=== PATIENT | female | born 1980 | race Caucasian/White ===

== ENCOUNTER 2016-06-15 16:02 | Emergency (ER) | payer OTHER ==
[2016-06-15] MEDS ORDERED: Lactated Ringers 1,000 ML IV ONE ×2 (16:18→16:48)
[2016-06-15 16:49] LABS: BASOPHIL % 0.5 % (0.0-0.4); Granulocytes % 65.4 % (36.0-66.0); Lymphocytes % 25.4 % (24.0-44.0); Mean Cell Volume 85.7 fl (78-100); Mean Corpuscular Hemoglobin 28.1 pg (26-32); Monocytes % 6.7 % (0.0-12.0); Platelet Count 246 K/mm3 (150-450); Red Blood Count 4.41 M/mm3 (4.1-5.4); Red Cell Distribution Width 13.3 % (11.5-14.0); White Blood Count 9.2 K/mm3 (4.0-10.5)
[2016-06-15 17:18] VITALS: BP 135/76; PULSE 77
[2016-06-15 17:19] VITALS: O2SAT 100
--- NOTE | 2016-06-15 17:19 | ERPHSYRPT ---
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 She is early in . Had home preg test positive. Today she felt dizziness while working and had some vaginal bleeding. Normal urination. No abd pain. No V/D. No fever. Prior normal preg delivered at 37 weeks. No sonogram or labs this as yet. Has appt to see Dr Meade. Timing/Duration: today Allergies/Adverse Reactions: Penicillins Allergy (Unknown, Verified 06/15/16 16:11) Home Medications: No Home Meds 1 ea UD 06/15/16 [History] Hx Tetanus, Diphtheria Vaccination/Date Given: No Hx Influenza Vaccination/Date Given: Yes (2015) Hx Pneumococcal Vaccination/Date Given: No - Review of Systems Constitutional: No Fever, No Chills Eyes: No Symptoms Ears, Nose, & Throat: No Symptoms Abdominal/Gastrointestinal: No Abdominal Pain Genitourinary Symptoms: , Vaginal Bleeding Skin: No Rash Neurological: Dizziness, No Focal Weakness, No Headache, No Parasthesia - Past Medical History Pertinent Past Medical History: Yes Neurological History: Migraines ENT History: No Pertinent History Cardiac History: No Pertinent History Respiratory History: No Pertinent History Endocrine Medical History: Hypothyroidism Musculoskeletal History: Fractures, Other GI Medical History: No Pertinent History History: No Pertinent History Psycho-Social History: No Pertinent History Female Reproductive Disorders: No Pertinent History - Past Surgical History Past Surgical History: Yes Neuro Surgical History: No Pertinent History Cardiac: No Pertinent History Respiratory: No Pertinent History Gastrointestinal: Other Genitourinary: No Pertinent History Musculoskeletal: Other Female Surgical History: Section Other Surgical History: EGD, Colonoscopy, knee sope - Social History Smoking Status: Never smoker Exposure to second hand smoke: No Drug Use: none Patient Lives Alone: No - Nursing Vital Signs Nursing Vital Signs: Initial Vital Signs Temperature 97.6 F Temperature Source Oral Pulse Rate 77 Respiratory Rate 18 Blood Pressure [] 135/76 Pain Intensity 0 - Physical Exam General Appearance: alert, thin Eye Exam: PERRL/EOMI Ears, Nose, Throat Exam: normal ENT inspection, moist mucous membranes Neck Exam: normal inspection, non-tender, supple Respiratory Exam: normal breath sounds, lungs clear Cardiovascular Exam: regular rate/rhythm Gastrointestinal/Abdomen Exam: soft, No tenderness, No distention, No mass, No guarding Back Exam: normal inspection Extremity Exam: normal inspection, normal range of motion Neurologic Exam: alert, oriented x 3, cooperative, supervisory aide II-XII nml as tested, sensation nml, No motor deficits, No abnormal cerebellar tests Skin Exam: warm, dry, No rash SpO2 Interpretation: normal SpO2: 100 Oxygen Delivery: Room Air - Course Nursing assessment & vital signs reviewed: Yes - Radiology Ultrasound Exam pelvic Ultrasound: Other (5 week IUP with fundal gestational sac and good decidual reaction) Ordered Tests: Active Orders 24 hr Category Date Time Status IV Insertion STAT Care 06/15/16 16:18 Active cath [Cath for Specimen-Straight] STAT Care 06/15/16 16:19 Active OB TRANSVAGINAL [US] Stat Exams 06/15/16 16:19 Ordered CBC W DIFF Stat Lab 06/15/16 16:24 Completed CMP Stat Lab 06/15/16 16:24 Completed HCG, Quantitative (Inhouse) Stat Lab 06/15/16 16:24 Completed HCG,QUALITATIVE URINE Stat Lab 06/15/16 16:24 Completed UA W/ MICROSCOPIC Stat Lab 06/15/16 16:24 Completed Medication Summary Discontinued Medications Generic Name Dose Route Start Last Admin Trade Name Neisha PRN Reason Stop Dose Admin Lactated Ringer's 1,000 mls @ 999 mls/hr 06/15/16 16:18 06/15/16 16:49 Lactated Ringers IV 06/15/16 17:18 999 mls/hr .Q1H1M ONE Administration Lactated Ringer's Confirm 06/15/16 16:48 Lactated Ringers Administered 06/15/16 16:49 Dose 1,000 mls @ ud IV .STK-MED ONE Lab/Rad Data: Laboratory Result Diagrams 06/15/16 16:24 06/15/16 16:24 Laboratory Results 06/15/16 06/15/16 06/15/16 Range/Units 16:24 16:24 16:24 WBC (4.0-10.5) K/mm3 RBC (4.1-5.4) M/mm3 Hgb (12.0-16.0) gm/dl Hct (35-47) % MCV (78-100) fl MCH (26-32) pg MCHC (32-36) g/dl RDW (11.5-14.0) % Plt Count (150-450) K/mm3 MPV (6-9.5) fl Gran % (36.0-66.0) % Lymphocytes % (24.0-44.0) % Monocytes % (0.0-12.0) % Eosinophils % (0.00-5.0) % Basophils % (0.0-0.4) % Basophils # (0-0.4) Sodium 139 (136-145) mEq/L Potassium 3.8 (3.5-5.1) mEq/L Chloride 103 (98-107) mEq/L Carbon Dioxide 26.3 (21-32) mEq/L Anion Gap 13.7 (5-15) MEQ/L BUN 11 (9-20) mg/dL Creatinine 0.87 (0.55-1.30) mg/dl Estimated GFR > 60 ML/MIN Glucose 90 (70-110) MG/DL Calcium 9.1 (8.5-10.1) mg/dL Total Bilirubin 0.2 (0.2-1.0) mg/dL AST 25 (15-37) U/L ALT 24 (12-78) U/L Alkaline Phosphatase 48 (46-116) U/L Serum Total Protein 8.0 (6.4-8.2) gm/dL Albumin 4.2 (3.4-5.0) g/dL Beta HCG, Quant 262 H (0-6) IU/L Ur Collection Type CLEAN CATCH Urine Color YELLOW (YELLOW) Urine Appearance CLEAR (CLEAR) Urine pH 5.5 (5-6) Ur Specific [place] 1.010 (1.005-1.025) Urine Protein NEGATIVE (Negative) Urine Glucose (UA) NEGATIVE (NEGATIVE) mg/dL Urine Ketones NEGATIVE (NEGATIVE) Urine Nitrite NEGATIVE (NEGATIVE) Urine Bilirubin NEGATIVE (NEGATIVE) Urine Urobilinogen 0.2 (0-1) mg/dL Urine WBC (Auto) TRACE (NEGATIVE) Urine RBC (Auto) MODERATE (0-5) Jabier/ul Urine Microscopic RBC 5-10 (0-2) /HPF Urine Microscopic WBC 2-5 (0-5) /HPF Ur Epithelial Cells FEW (FEW) /HPF Urine Bacteria FEW (NEGATIVE) /HPF Urine HCG, Qual (Negative) Specimen Received [id number] ABO Group O Rh Factor POSITIVE Antibody Screen NEGATIVE (NEGATIVE) 06/15/16 06/15/16 Range/Units 16:24 16:24 WBC 9.2 (4.0-10.5) K/mm3 RBC 4.41 (4.1-5.4) M/mm3 Hgb 12.4 (12.0-16.0) gm/dl Hct 37.8 (35-47) % MCV 85.7 (78-100) fl MCH 28.1 (26-32) pg MCHC 32.8 (32-36) g/dl RDW 13.3 (11.5-14.0) % Plt Count 246 (150-450) K/mm3 MPV 10.0 H (6-9.5) fl Gran % 65.4 (36.0-66.0) % Lymphocytes % 25.4 (24.0-44.0) % Monocytes % 6.7 (0.0-12.0) % Eosinophils % 2.0 (0.00-5.0) % Basophils % 0.5 (0.0-0.4) % Basophils # 0.05 (0-0.4) Sodium (136-145) mEq/L Potassium (3.5-5.1) mEq/L Chloride (98-107) mEq/L Carbon Dioxide (21-32) mEq/L Anion Gap (5-15) MEQ/L BUN (9-20) mg/dL Creatinine (0.55-1.30) mg/dl Estimated GFR ML/MIN Glucose (70-110) MG/DL Calcium (8.5-10.1) mg/dL Total Bilirubin (0.2-1.0) mg/dL AST (15-37) U/L ALT (12-78) U/L Alkaline Phosphatase (46-116) U/L Serum Total Protein (6.4-8.2) gm/dL Albumin (3.4-5.0) g/dL Beta HCG, Quant (0-6) IU/L Ur Collection Type Urine Color (YELLOW) Urine Appearance (CLEAR) Urine pH (5-6) Ur Specific [place] (1.005-1.025) Urine Protein (Negative) Urine Glucose (UA) (NEGATIVE) mg/dL Urine Ketones (NEGATIVE) Urine Nitrite (NEGATIVE) Urine Bilirubin (NEGATIVE) Urine Urobilinogen (0-1) mg/dL Urine WBC (Auto) (NEGATIVE) Urine RBC (Auto) (0-5) Jabier/ul Urine Microscopic RBC (0-2) /HPF Urine Microscopic WBC (0-5) /HPF Ur Epithelial Cells (FEW) /HPF Urine Bacteria (NEGATIVE) /HPF Urine HCG, Qual POSITIVE (Negative) Specimen Received ABO Group Rh Factor Antibody Screen (NEGATIVE) - Progress Progress Note: 06/15/16 17:56 Labs reviewed. IVF given. Will release with inst. Counseled pt/family regarding: lab results, diagnosis, need for follow-up, rad results - Departure Time of Disposition: 17:56 Departure Disposition: Home Clinical Impression: Vaginal bleeding in patient at less than 20 weeks gestation, Intrauterine Condition: Stable Critical Care Time: No Referrals: SUKH MEADE [Primary Care Provider] - Instructions: Vaginal Bleeding During Additional Instructions: No intercourse, strenuous exercise. Drink plenty of fluids. Follow up with Dr Meade this week. Return for problems or concerns.
[2016-06-15 17:24] LABS: ALBUMIN 4.2 g/dL (3.4-5.0); ALKALINE PHOSPHATASE 48 U/L (46-116); ANION GAP 13.7 MEQ/L (5-15); BILIRUBIN,TOTAL 0.2 mg/dL (0.2-1.0); BLOOD UREA NITROGEN 11 mg/dL (9-20); CHLORIDE 103 mEq/L (98-107); Carbon Dioxide 26.3 mEq/L (21-32); Glucose 90 MG/DL (70-110); HCG, Quantitative (Inhouse) 262 IU/L (0-6); Potassium 3.8 mEq/L (3.5-5.1); SGOT/AST 25 U/L (15-37); SGPT/ALT 24 U/L (12-78); SODIUM 139 mEq/L (136-145)
[2016-06-15 17:33] LABS: Collection Type CLEAN CATCH
[2016-06-15 17:34] LABS: Bacteria FEW /HPF (NEGATIVE); COMPLETE URINE MICROSCOPIC? YES; Epithelial Cells FEW /HPF (FEW); Ph 5.5 (5-6)
--- NOTE | 2016-06-15 20:06 | XRAY ---
Exam: Transvaginal OB ultrasound from 06/15/2016. Comparison: None from this . Indication: Vaginal spotting. Findings: There appears to be early formation of a gestational sac in a normal position within the uterine fundus. Mean diameter of the gestational sac is 4.5 mm. No definite pole or cardiac activity can be seen within this tiny gestational sac as of yet. I saw no abnormal fluid within the lower endometrial canal or cervical canal. No free fluid was seen within the cul-de-sac. Both maternal ovaries are identified and appear unremarkable. No Doppler evaluation of the maternal ovaries was performed. Impression: 1. There appears to be a tiny, normally positioned intrauterine gestational sac within the upper uterine segment measuring an average of 4.5 mm in diameter. This is suggestive of a gestational age of 5 weeks 0 days. However, a pole or cardiac activity cannot be seen at this time. I would consider a follow-up transvaginal ultrasound in 2-3 weeks.
== END 2016-06-15 18:11 | disposition home or self-care (01) ==
LOC: ED 16:02
DX: O20.9 Hemorrhage in early pregnancy, unspecified (principal)
CPT/HCPCS: 36000; 36415; 76817; 80053; 81000; 84702; 84703; 85025; 86850; 86900; 86901; 96360; 99284; 99285

== ENCOUNTER 2017-04-06 12:06 | Observation (INO) | payer OTHER ==
[2017-04-06 12:40] VITALS: PULSE 79
[2017-04-06 14:22] VITALS: BP 110/66
--- NOTE | 2017-04-06 16:21 | XRAY ---
Indication: Spotting. Two-dimensional OB ultrasound performed. Comparison: March 18, 2017. Again there is a single viable intrauterine now in breech presentation. Normal four-chamber heart with heart rate 155 bpm. Normal three-vessel cord and cord insertion. Visualized stomach, kidneys, and bladder are unremarkable. Placenta is again posterior without abruption/previa. Cervical length measures 5.2 cm. BPD measures 5.17 cm corresponding to 21 weeks 5 days. HC measures 19.24 cm corresponding to 21 weeks 3 day. AC measures 16.52 cm corresponding to 21 weeks 4 days. FL measures 3.72 cm corresponding to 21 weeks 6 days. NOEMY is 12.6 cm. Impression: Again single viable intrauterine with mean gestational age 21 weeks 5 days. Normal progression of . No new or acute findings.
[2017-04-06 16:54] LABS: Appearance CLEAR (CLEAR); Bilirubin NEGATIVE (NEGATIVE); Blood NEGATIVE Ery/ul (0-5); Glucose NEGATIVE (NEGATIVE); Ketones NEGATIVE (NEGATIVE); Leukocyte Esterase NEGATIVE (NEGATIVE); Nitrite NEGATIVE (NEGATIVE); Protein,Urine Dip NEGATIVE (Negative); Specific Gravity 1.005 (1.005-1.025); Urobilinogen NORMAL mg/dL (0-1)
== END 2017-04-06 16:45 | disposition home or self-care (01) ==
LOC: MED SURG 12:06
PROVIDERS: ADMIT Family Medicine; ATTEND Family Medicine
DX: Z34.82 Encounter for supervision of other normal pregnancy, second trimester (principal)
CPT/HCPCS: 76805; 81002; G0378

== ENCOUNTER 2017-06-09 14:26 | Observation (INO) | payer OTHER ==
[2017-06-09 15:41] VITALS: BP 136/76; PULSE 94
[2017-06-09 15:54] LABS: Appearance CLOUDY (CLEAR); Bilirubin NEGATIVE (NEGATIVE); Blood NEGATIVE Ery/ul (0-5); Glucose NEGATIVE (NEGATIVE); Ketones NEGATIVE (NEGATIVE); Leukocyte Esterase NEGATIVE (NEGATIVE); Nitrite NEGATIVE (NEGATIVE); Protein,Urine Dip NEGATIVE (Negative); Urobilinogen NORMAL mg/dL (0-1)
== END 2017-06-09 16:00 | disposition home or self-care (01) ==
LOC: OB 15:07 → UNDOADMOB 15:07 → UNDODISOB 16:00
PROVIDERS: ADMIT Family Medicine; ATTEND Family Medicine
DX: Z34.83 Encounter for supervision of other normal pregnancy, third trimester (principal)
CPT/HCPCS: 81002; G0378

== ENCOUNTER 2017-07-22 13:06 | Observation (INO) | payer OTHER ==
[2017-07-22 14:33] LABS: BASOPHIL % 0.3 % (0.0-0.4); Basophil (Absolute #) 0.02 (0-0.4); Eosinophil % 2.8 % (0.00-5.0); Eosinophil (Absolute #) 0.22 (0-0.5); Granulocytes % 70.7 % (36.0-66.0); Hematocrit 32.4 % (35-47); Hemoglobin 10.8 gm/dl (12.0-16.0); Lymphocyte (Absolute #) 1.55 (1.0-4.6); Lymphocytes % 19.6 % (24.0-44.0); Mean Corpuscular Hgb Concent. 33.3 g/dl (32-36); Monocyte (Absolute #) 0.52 (0.0-1.3); Monocytes % 6.6 % (0.0-12.0); Platelet Count 144 K/mm3 (150-450); Red Cell Distribution Width 13.5 % (11.5-14.0); White Blood Count 7.9 K/mm3 (4.0-10.5)
[2017-07-22 15:34] VITALS: BP 106/64
--- NOTE | 2017-07-22 15:42 | XRAY ---
Indication: growth and NOEMY. Limited OB OB ultrasound performed. Comparison: June 24, 2017. Again there is a single viable intrauterine in cephalic presentation. heart rate 138 bpm. BPD measures 9.16 cm corresponding to 37 weeks 1 day. HC measures 32.68 cm corresponding to 37 weeks 1 day. AC measures 32.67 cm corresponding to 36 weeks 4 days. FL measures 7.05 cm corresponding to 36 weeks 1 day. Estimated weight 6 pounds 9 oz., +/- 1 lb. 0 oz. Approximate 39 percentile. NOEMY is 11.2 cm. Impression: Again single viable intrauterine with mean gestational age 36 weeks 5 days. Normal progression of . No new or acute findings.
== END 2017-07-22 15:30 | disposition home or self-care (01) ==
LOC: RAD 13:06 → EDSTATUS 14:12 → MED SURG 14:12
PROVIDERS: ADMIT Family Medicine; ATTEND Family Medicine
DX: Z34.83 Encounter for supervision of other normal pregnancy, third trimester (principal)
CPT/HCPCS: 36415; 76815; 85025; G0378; 59025

== ENCOUNTER 2017-08-02 15:06 | Observation (INO) | payer OTHER ==
[2017-08-02 15:30] VITALS: BP 114/73; PULSE 67
[2017-08-02 15:34] LABS: BASOPHIL % 0.3 % (0.0-0.4); Basophil (Absolute #) 0.02 (0-0.4); Eosinophil % 2.9 % (0.00-5.0); Eosinophil (Absolute #) 0.21 (0-0.5); Granulocytes % 70.9 % (36.0-66.0); Hematocrit 33.5 % (35-47); Hemoglobin 11.1 gm/dl (12.0-16.0); Lymphocyte (Absolute #) 1.38 (1.0-4.6); Lymphocytes % 18.8 % (24.0-44.0); Mean Cell Volume 90.8 fl (78-100); Mean Corpuscular Hgb Concent. 33.1 g/dl (32-36); Mean Platelet Volume 9.8 fl (6-9.5); Monocyte (Absolute #) 0.52 (0.0-1.3); Monocytes % 7.1 % (0.0-12.0); Platelet Count 132 K/mm3 (150-450); Red Blood Count 3.69 M/mm3 (4.1-5.4); Red Cell Distribution Width 13.6 % (11.5-14.0); White Blood Count 7.3 K/mm3 (4.0-10.5)
[2017-08-02 15:47] LABS: Appearance HAZY (CLEAR); Bilirubin NEGATIVE (NEGATIVE); Blood NEGATIVE Ery/ul (0-5); Glucose NEGATIVE (NEGATIVE); Ketones NEGATIVE (NEGATIVE); Leukocyte Esterase NEGATIVE (NEGATIVE); Nitrite NEGATIVE (NEGATIVE); Protein,Urine Dip NEGATIVE (Negative); Specific Gravity 1.015 (1.005-1.025); Urobilinogen NORMAL mg/dL (0-1)
[2017-08-02 15:48] LABS: ALBUMIN 3.5 g/dL (3.5-5.0); ALKALINE PHOSPHATASE 101 U/L (38-126); ANION GAP 8.5 MEQ/L (5-15); BILIRUBIN,TOTAL < 0.10 mg/dL (0.2-1.3); BLOOD UREA NITROGEN 7 mg/dL (7-17); CHLORIDE 106 mmol/L (98-107); Calcium 8.7 mg/dL (8.4-10.2); Carbon Dioxide 25 mmol/L (22-30); Creatinine 1 0.56 mg/dL (0.52-1.04); Glucose 83 mg/dL (74-106); Potassium 3.5 mmol/L (3.5-5.1); SGOT/AST 31 U/L (14-36); SGPT/ALT 26 U/L (0-35); SODIUM 136 mmol/L (137-145); Total Protein 6.5 g/dL (6.3-8.2)
== END 2017-08-02 17:30 | disposition home or self-care (01) ==
LOC: OB 15:06
PROVIDERS: ADMIT Family Medicine; ATTEND Family Medicine
DX: Z34.83 Encounter for supervision of other normal pregnancy, third trimester (principal)
CPT/HCPCS: 36415; 80053; 81002; 85025; G0378; 59025

== ENCOUNTER 2017-08-04 02:01 | Inpatient (IN) | payer OTHER ==
[2017-08-04] MEDS ORDERED: Lactated Ringers 1,000 ML IV ONE (15:18)
[2017-08-04 16:10] LABS: BASOPHIL % 0.1 % (0.0-0.4); Basophil (Absolute #) 0.01 (0-0.4); Eosinophil % 3.1 % (0.00-5.0); Eosinophil (Absolute #) 0.23 (0-0.5); Granulocyte Absolute (ANC) 5.43 (1.4-6.9); Granulocytes % 73.9 % (36.0-66.0); Lymphocyte (Absolute #) 1.19 (1.0-4.6); Lymphocytes % 16.2 % (24.0-44.0); Mean Cell Volume 90.7 fl (78-100); Mean Corpuscular Hemoglobin 30.2 pg (26-32); Mean Corpuscular Hgb Concent. 33.3 g/dl (32-36); Mean Platelet Volume 10.1 fl (6-9.5); Monocyte (Absolute #) 0.49 (0.0-1.3); Monocytes % 6.7 % (0.0-12.0); Platelet Count 133 K/mm3 (150-450); Red Blood Count 3.64 M/mm3 (4.1-5.4); Red Cell Distribution Width 13.8 % (11.5-14.0); White Blood Count 7.4 K/mm3 (4.0-10.5)
[2017-08-04 16:44] LABS: ALBUMIN 3.4 g/dL (3.5-5.0); ALKALINE PHOSPHATASE 98 U/L (38-126); ANION GAP 10.4 MEQ/L (5-15); BILIRUBIN,TOTAL < 0.10 mg/dL (0.2-1.3); BLOOD UREA NITROGEN 10 mg/dL (7-17); CHLORIDE 107 mmol/L (98-107); Carbon Dioxide 24 mmol/L (22-30); Creatinine 1 0.52 mg/dL (0.52-1.04); Glucose 102 mg/dL (74-106); Potassium 3.9 mmol/L (3.5-5.1); SGOT/AST 26 U/L (14-36); SGPT/ALT 22 U/L (0-35); SODIUM 138 mmol/L (137-145); Total Protein 6.2 g/dL (6.3-8.2)
[2017-08-04] MEDS: Lactated Ringers 1,000 ML IV SCH ×2 (16:51→22:44)
[2017-08-05] MEDS ORDERED: CLINDAMYCIN-D5W 900 MG/50 ML*** 900 MG/50 ML BAG IV SCH (03:00)
[2017-08-05 03:38] LABS: Appearance CLEAR (CLEAR); Ph 8.5 (5-6)
[2017-08-05 03:39] LABS: Bilirubin NEGATIVE (NEGATIVE); Blood NEGATIVE Ery/ul (0-5); Glucose NEGATIVE (NEGATIVE); Ketones NEGATIVE (NEGATIVE); Leukocyte Esterase NEGATIVE (NEGATIVE); Nitrite NEGATIVE (NEGATIVE); Protein,Urine Dip NEGATIVE (Negative); Urobilinogen NORMAL mg/dL (0-1)
[2017-08-05 03:51] LABS: Amphetamine,Urine NEGATIVE (NEGATIVE); Barbiturate,Urine NEGATIVE (NEGATIVE); Benzodiazepine,Urine NEGATIVE (NEGATIVE); Cocaine,Urine NEGATIVE (NEGATIVE); Methadone,Urine NEGATIVE (NEGATIVE); Opiate,Urine NEGATIVE (NEGATIVE); PCP,Urine NEGATIVE (NEGATIVE); THC,Urine NEGATIVE (NEGATIVE)
[2017-08-05] MEDS ORDERED: Lactated Ringers 1,000 ML IV ONE (04:30)
[2017-08-05] MEDS ORDERED: Lactated Ringers 1,000 ML IV SCH (04:30)
[2017-08-05] MEDS ORDERED: Pepcid 20 MG VIAL IV SCH (05:00)
[2017-08-05] MEDS ORDERED: Reglan 10 MG/2 ML IV SCH (05:00)
[2017-08-05 05:18] LABS: INR 0.95 (0.8-3.0)
[2017-08-05 05:21] LABS: PTT 28.2 SECONDS (25.3-37.0)
[2017-08-05 06:02] LABS: ABO TYPING O
[2017-08-05 06:03] LABS: Antibody Screen NEGATIVE (NEGATIVE); RH TYPING POSITIVE
[2017-08-05] MEDS ORDERED: Nubain 10 MG/ML IV PRN (07:00)
[2017-08-05] MEDS ORDERED: Narcan 0.4 MG/ML IV PRN (07:00)
[2017-08-05] MEDS ORDERED: DEMEROL 50 MG IV PRN (07:00)
[2017-08-05] MEDS ORDERED: MORPHINE SULFATE 2 MG INJ IV PRN (07:00)
[2017-08-05] MEDS ORDERED: Zofran 4 MG/2 ML VIAL IV PRN (07:00)
[2017-08-05] MEDS ORDERED: CLARITIN 10 MG PO PRN (07:00)
[2017-08-05] MEDS ORDERED: HOLD NARCOTIC ANALGESICS AND SEDATIVES X24 HR MC PRN (07:00)
[2017-08-05] MEDS ORDERED: BENADRYL 50 MG/ML IV PRN (07:00)
[2017-08-05] MEDS ORDERED: Lactated Ringers 2,000 ML IV ONE (07:17)
--- NOTE | 2017-08-05 07:52 | OP ---
SURGERY DATE/TIME: 08/05/201709 PREOPERATIVE DIAGNOSES: 1) Non-reassuring heart tones. 2) History of prior section. 3) Term intrauterine in active labor. POSTOPERATIVE DIAGNOSES: 1) Non-reassuring heart tones. 2) History of prior section. 3) Term intrauterine in active labor. PROCEDURE: Repeat low transverse section. SURGEON: Perfecto Canales M.D. [employer] TEACHER: Bhumika Meade M.D. ESTIMATED BLOOD LOSS: 400 cc. IV FLUIDS: 1400 cc of crystalloid. URINE OUTPUT: 400 cc of clear straw-colored urine. ANESTHESIA: Spinal by Salo Montoya CRNA. SPECIMENS: None. DESCRIPTION OF PROCEDURE: After informed written consent was obtained, the patient was taken to the operating room. She underwent spinal anesthesia. She was prepped and draped in the usual sterile fashion. After adequate level of anesthesia was assessed, a low transverse skin incision was made by knife and carried down through the subcutaneous fat to the level of the fascia. The fascia was nicked on both sides of the midline and extended in horizontal fashion using curved [place] scissors. The superior free edge of the fascia was grasped with Castro clamps and the underlying rectus muscles were dissected free. The same was repeated inferiorly. The peritoneal cavity was then opened bluntly and extended in horizontal fashion. Bladder flap was then created and reflected over the lower uterine segment. A horizontal uterine incision was made by knife and carried down to the amniotic membranes which were carefully artificially ruptured. Clear fluid was encountered. A viable male infant delivered from the vertex presentation with a strong cry immediately upon delivery. The cord was clamped and cut and Dr. Meade robed and scrubbed to care for the baby. The placenta was removed and then the uterus was exteriorized. The uterine cavity was then sponge curetted clean with lap sponge. Next, the uterine incision was closed with #1 chromic in a running locked fashion. Two layers were used to provide good closure and good hemostasis. The posterior cul-de-sac was wiped free of blood and clot and then the uterus was returned to the peritoneal cavity. The uterine incision was again inspected and noted to be hemostatic. Lateral gutters were wiped free of blood and clot with moist lap sponge. Next, the fascia was closed with 0 Vicryl in a running fashion. Good closure and good hemostasis were achieved. Subcutaneous fat was then irrigated with warm, sterile saline. Any areas of bleeding were cauterized with electrocautery. The skin layer was closed with 4-0 undyed Vicryl in a running subcuticular fashion. Steri-Strips and occlusive dressing were placed over the incision and the patient was transferred to the recovery in excellent condition.
[2017-08-05] MEDS ORDERED: TYLENOL EXTRA STRENGTH 500 MG PO PRN (08:00)
[2017-08-05] MEDS ORDERED: LANSINOH 40 GM TOP PRN (08:00)
[2017-08-05] MEDS ORDERED: Dulcolax 10 MG SUPP PR PRN (08:00)
[2017-08-05] MEDS ORDERED: CORTISONE 1% CREAM TP PRN (08:00)
[2017-08-05] MEDS ORDERED: Anucort-HC SUPPOSITORY PR PRN (08:00)
[2017-08-05] MEDS: Dextrose 5%-Lr IV Solution 1000 ML 1,000 ML IV SCH ×2 (08:22→21:25)
[2017-08-05] MEDS ORDERED: FERREX 150 PO SCH (10:00)
[2017-08-05] MEDS ORDERED: Phenergan 25 MG INJ IM ONE (10:05)
[2017-08-05] MEDS: THERAGRAN MULTIVITAMIN PO SCH (14:44)
[2017-08-05] MEDS: FEOSOL 325 MG PO SCH (14:44)
[2017-08-05] MEDS: Colace 100 MG PO SCH ×2 (14:44→21:26)
[2017-08-05] MEDS ORDERED: MARCAINE 0.5%-EPI 1:200,000 VL IJ ONE (15:42)
[2017-08-05] MEDS ORDERED: TORAdol 30 mg Injection IV ONE (15:42)
[2017-08-05] MEDS ORDERED: Zofran 4 MG/2 ML VIAL IV ONE (15:42)
[2017-08-05] MEDS ORDERED: PHENYLEPHRINE HCL IV ONE (15:42)
[2017-08-05] MEDS: MOTRIN 400 MG PO PRN (21:25)
[2017-08-05] MEDS: PERCOCET TABLET 5/325MG PO PRN (21:26)
[2017-08-06] MEDS: PERCOCET TABLET 5/325MG PO PRN ×2 (01:30→06:13)
[2017-08-06] MEDS: MOTRIN 400 MG PO PRN ×3 (03:30→20:09)
[2017-08-06 05:55] LABS: Hematocrit 26.4 % (35-47); Hemoglobin 8.7 gm/dl (12.0-16.0); Mean Cell Volume 92.6 fl (78-100); Mean Corpuscular Hemoglobin 30.5 pg (26-32); Mean Platelet Volume 10.3 fl (6-9.5); Platelet Count 121 K/mm3 (150-450); Red Blood Count 2.85 M/mm3 (4.1-5.4); Red Cell Distribution Width 13.8 % (11.5-14.0)
[2017-08-06] MEDS: Mylicon 80MG PO PRN ×2 (06:13→21:49)
[2017-08-06 06:37] VITALS: O2SAT 98
[2017-08-06] MEDS ORDERED: Phenergan 25 MG INJ IM PRN (07:00)
[2017-08-06] MEDS ORDERED: DEMEROL 75 MG IM PRN (07:00)
[2017-08-06] MEDS: Colace 100 MG PO SCH ×2 (10:05→21:49)
[2017-08-06] MEDS: THERAGRAN MULTIVITAMIN PO SCH (10:05)
[2017-08-06] MEDS: NORCO 5/325 MG PO PRN ×3 (10:05→21:48)
[2017-08-06] MEDS: FEOSOL 325 MG PO SCH (10:06)
[2017-08-06] MEDS ORDERED: Astramorph-Pf 5 MG/10 ML IV ONE (16:29)
[2017-08-07] MEDS: NORCO 5/325 MG PO PRN ×3 (02:09→10:15)
[2017-08-07] MEDS: MOTRIN 400 MG PO PRN (02:10)
[2017-08-07 08:32] VITALS: BP 122/73; PULSE 73
--- NOTE | 2017-08-07 09:30 | PCM.DS ---
Discharge Summary Date of Admission: 08/05/17 02:01 Admitting Physician: SUKH MCLAUGHLIN Consults: Consults on Case 08/05/17 02:39 Notify Anesthesia Provider ROUTINE Primary Care Provider: SUKH MCLAUGHLIN Allergies Allergies Penicillins Allergy (Unknown, Verified 04/06/17 12:17) Hospital Summary - Hospital Course Hospital Course: patient had repeat on 08/05/17, she had been feeling poorly and had some hypotension and decels on EFM so was done at 38+wks. has done well post- operatively, no complications. - Vitals & Intake/Output Vital Signs: Vital Signs Temperature 98.1 F 08/07/17 08:00 Pulse Rate 73 08/07/17 08:00 Respiratory Rate 18 08/07/17 08:00 Blood Pressure 122/73 08/07/17 08:00 O2 Sat by Pulse Oximetry 98 08/06/17 06:55 Intake & Output: Intake & Output 08/04/17 08/05/17 08/06/17 08/07/17 11:59 11:59 11:59 11:59 Intake Total 5079 4431 1690 Output Total 1850 Balance 5079 2581 1690 Weight 74.843 kg - Lab Result Diagrams: 08/06/17 05:15 08/04/17 15:56 Micro Results-Entire Visit: Microbiology 08/05/17 06:30 Urine Culture - Final Catherized NO GROWTH Discharge Exam General Appearance: no apparent distress, alert Skin Exam: normal color, warm, dry Respiratory Exam: normal breath sounds, lungs clear, No respiratory distress Cardiovascular Exam: regular rate/rhythm, normal heart sounds Gastrointestinal/Abdomen Exam: soft, other (incision c/d/i), No tenderness, No mass Extremity Exam: normal inspection, normal range of motion Final Diagnosis/Problem List - Final Discharge Diagnosis/Problem (1) delivery delivered Current Visit: Yes Status: Acute (2) (infant) Current Visit: Yes Status: Acute - Discharge Disposition: Home, Self-Care Condition: Stable Prescriptions: New Hydrocodone Bit/Acetaminophen [[place] 5-325 Tablet] 1 tab PO Q4-6HPRN PRN #30 tablet MDD 6 PRN Reason: Pain Continue Vits W-Ca,Fe,FA(<1Mg) [] 1 tablet PO DAILY Ferrous Sulfate [Iron] 325 mg PO DAILY Follow up with: SUKH MCLAUGHLIN [Primary Care Provider] - 1 Week
[2017-08-07] MEDS: FEOSOL 325 MG PO SCH (09:40)
[2017-08-07] MEDS: Colace 100 MG PO SCH (09:40)
[2017-08-07] MEDS: THERAGRAN MULTIVITAMIN PO SCH (09:40)
== END 2017-08-07 11:30 | disposition home or self-care (01) | DRG 766 ==
LOC: OB 02:01 → OBSVTOIN 08-05 02:01
PROVIDERS: ADMIT Family Medicine; ATTEND Family Medicine
PROC: 10D00Z1 Extraction of Products of Conception, Low, Open Approach (ICD-10-PCS; principal; 2017-08-05)
DX: O76 Abnormality in fetal heart rate and rhythm complicating labor and delivery (principal); Z3A.38 38 weeks gestation of pregnancy; Z37.0 Single live birth; D69.6 Thrombocytopenia, unspecified; D64.9 Anemia, unspecified
CPT/HCPCS: 36415; 59025; 62322; 64488; 76937; 76942; 80053; 80307; 81002; 85025; 85027; 85610; 85730; 86850; 86900; 86901; 87086; 94799; G0378; J1885; J2274; J2370; J2405; J2550; L0625; A9270-GY

== ENCOUNTER 2020-11-25 13:59 | Emergency (ER) | payer OTHER ==
--- NOTE | 2020-11-25 14:27 | ERPHSYRPT ---
- History of Present Illness Time Seen by Provider: 11/25/20 14:14 Source: patient Exam Limitations: no limitations Patient Subjective Stated Complaint: Pt states "I have been having chest pressure and back pain for a couple of days now. I just found out that I have pulmonary hypertension and I am supposed to see a machine ii cutter, Dr. Preston, on 12 05 2020" Triage Nursing Assessment: PT presented alert and oriented X 3, skin wpd tp ambulates with an upright steady gait, able to speak in clear full sentences pt in no apparent respiratory distress. Pt stated she is under allot of stress and she has hurt since she was positive for covid, and she just wants to make sure she is ok. Physician History: 40 years old with recent COVID-19 almost a month ago and was found out that she has a pulmonary hypertension reported in the ER with chief complaint of shortness of breath and chest tightness off and on since last month, more with exertion and for the last almost 1 week she is having a constant pressure and shortness of breath with discomfort in the shoulder blade area with regularity getting worse. Denies any fever or chills. Timing/Duration: week(s) (1), gradual onset Activities at Onset: activity, rest Severity of Dyspnea-Max: moderate Severity of Dyspnea-Current: moderate Possible Cause: occasional episodes Modifying Factors: Worsens With: activity, exertion Associated Symptoms: chest pain/discomfort, heaviness, tightness, No productive cough Allergies/Adverse Reactions: Penicillins Allergy (Unknown, Verified 12/20/19 10:36) Home Medications: No Reportable Medications [No Reported Medications] 12/20/19 [History] Hx Tetanus, Diphtheria Vaccination/Date Given: No Hx Influenza Vaccination/Date Given: Yes (2015) Hx Pneumococcal Vaccination/Date Given: No Immunizations Up to Date: Yes Travel Risk - International Travel Have you traveled outside of the country in past 3 weeks: No - Coronavirus Screening Are you exhibiting any of the following symptoms?: No Close contact with a COVID-19 positive Pt in past 14-21 Days: No - Vaccine Status Have you recieved a Covid-19 vaccination: No - Review of Systems Constitutional: No Symptoms, Fatigue, Weakness Eyes: No Symptoms Ears, Nose, & Throat: No Symptoms Respiratory: Cough, Dyspnea, Dyspnea on Exertion (BENNETT) Cardiac: Chest Pain Abdominal/Gastrointestinal: No Symptoms Genitourinary Symptoms: No Symptoms Musculoskeletal: Myalgias Skin: No Symptoms Neurological: No Symptoms, Dizziness Psychological: No Symptoms Endocrine: No Symptoms Hematologic/Lymphatic: No Symptoms Immunological/Allergic: No Symptoms - Past Medical History Pertinent Past Medical History: Yes Neurological History: No Pertinent History ENT History: No Pertinent History Cardiac History: No Pertinent History Respiratory History: No Pertinent History Endocrine Medical History: Hypothyroidism Musculoskeletal History: Fractures, Other GI Medical History: No Pertinent History History: No Pertinent History Psycho-Social History: No Pertinent History Female Reproductive Disorders: No Pertinent History - Past Surgical History Past Surgical History: Yes Neuro Surgical History: No Pertinent History Cardiac: No Pertinent History Respiratory: No Pertinent History Gastrointestinal: Other Genitourinary: No Pertinent History Musculoskeletal: Other Female Surgical History: Section Other Surgical History: EGD, Colonoscopy, knee sope - Social History Smoking Status: Never smoker Exposure to second hand smoke: No Drug Use: none Patient Lives Alone: No - Female History Hx Last Menstrual Period: 10/13/2020 Hx Now: No - Nursing Vital Signs Nursing Vital Signs: Initial Vital Signs Temperature 98.3 F 11/25/20 14:11 Pulse Rate 60 11/25/20 14:11 Respiratory Rate 24 11/25/20 14:11 Blood Pressure 130/87 11/25/20 14:11 O2 Sat by Pulse Oximetry 100 11/25/20 14:11 Pain Scale Pain Intensity 0 - Physical Exam General Appearance: no apparent distress, alert Eye Exam: PERRL/EOMI, eyes nml inspection Ears, Nose, Throat Exam: hearing grossly normal, normal ENT inspection, normal pharynx Neck Exam: normal inspection, non-tender, supple, full range of motion Respiratory Exam: normal breath sounds, lungs clear Cardiovascular/Chest Exam: normal heart sounds, regular rate/rhythm Abdominal/Gastrointestinal Exam: soft, normal bowel sounds, No tenderness Extremity Exam: non-tender, normal range of motion Neurologic Exam: alert, oriented x 3, cooperative, air turning machine feeder II-XII nml as tested Skin Exam: normal color SpO2 Interpretation: normal SpO2: 100 O2 Delivery: Room Air - Course EKG Interpreted by Me: RATE (60), Sinus Rhythm, NORMAL AXIS, NORMAL INTERVALS, NORMAL QRS Ordered Tests: Active Orders 24 hr Category Date Time Status CHEST 1 VIEW (PORTABLE) Stat Exams 11/25/20 14:23 Completed CBC W DIFF Stat Lab 11/25/20 14:20 Completed CMP Stat Lab 11/25/20 14:20 Completed D-DIMER QUANTITATIVE Stat Lab 11/25/20 14:20 Completed HCG,QUALITATIVE URINE Stat Lab 11/25/20 14:36 Completed MAGNESIUM Stat Lab 11/25/20 14:20 Completed NT PRO BNP Stat Lab 11/25/20 14:20 Completed TROPONIN Q3H Lab 11/25/20 14:20 Completed TROPONIN Q3H Lab 11/25/20 17:10 Received TROPONIN Q3H Lab 11/25/20 20:30 Ordered TROPONIN Q3H Lab 11/25/20 23:30 Ordered TROPONIN Q3H Lab 11/26/20 02:30 Ordered Lab/Rad Data: Laboratory Result Diagrams 11/25/20 14:20 11/25/20 14:20 Laboratory Results 11/25/20 11/25/20 11/25/20 Range/Units 14:36 14:20 14:20 WBC (4.0-10.5) K/mm3 RBC (4.1-5.4) M/mm3 Hgb (12.0-16.0) gm/dl Hct (35-47) % MCV (78-100) fl MCH (26-32) pg MCHC (32-36) g/dl RDW (11.5-14.0) % Plt Count (150-450) K/mm3 MPV (7.5-11.0) fl Gran % (36.0-66.0) % Eos # (Auto) (0-0.5) Absolute Lymphs (auto) (1.0-4.6) Absolute Monos (auto) (0.0-1.3) Lymphocytes % (24.0-44.0) % Monocytes % (0.0-12.0) % Eosinophils % (0.00-5.0) % Basophils % (0.0-0.4) % Absolute Granulocytes (1.4-6.9) Basophils # (0-0.4) D-Dimer 224 (215-500) ng/mL Sodium (137-145) mmol/L Potassium (3.5-5.1) mmol/L Chloride (98-107) mmol/L Carbon Dioxide (22-30) mmol/L Anion Gap (5-15) MEQ/L BUN (7-17) mg/dL Creatinine (0.52-1.04) mg/dL Estimated GFR ML/MIN Glucose (74-106) mg/dL Calcium (8.4-10.2) mg/dL Magnesium (1.6-2.3) mg/dL Total Bilirubin (0.2-1.3) mg/dL AST (14-36) U/L ALT (0-35) U/L Alkaline Phosphatase (38-126) U/L Troponin I < 0.012 (0.000-0.034) ng/mL NT-Pro-B Natriuret Pep (0-450) pg/mL Serum Total Protein (6.3-8.2) g/dL Albumin (3.5-5.0) g/dL Urine HCG, Qual NEGATIVE (Negative) 11/25/20 11/25/20 Range/Units 14:20 14:20 WBC 6.1 (4.0-10.5) K/mm3 RBC 4.48 (4.1-5.4) M/mm3 Hgb 12.7 (12.0-16.0) gm/dl Hct 39.6 (35-47) % MCV 88.4 (78-100) fl MCH 28.3 (26-32) pg MCHC 32.1 (32-36) g/dl RDW 13.3 (11.5-14.0) % Plt Count 251 (150-450) K/mm3 MPV 10.3 (7.5-11.0) fl Gran % 60.0 (36.0-66.0) % Eos # (Auto) 0.17 (0-0.5) Absolute Lymphs (auto) 1.91 (1.0-4.6) Absolute Monos (auto) 0.31 (0.0-1.3) Lymphocytes % 31.6 (24.0-44.0) % Monocytes % 5.1 (0.0-12.0) % Eosinophils % 2.8 (0.00-5.0) % Basophils % 0.5 (0.0-0.4) % Absolute Granulocytes 3.63 (1.4-6.9) Basophils # 0.03 (0-0.4) D-Dimer (215-500) ng/mL Sodium 139 (137-145) mmol/L Potassium 3.9 (3.5-5.1) mmol/L Chloride 103 (98-107) mmol/L Carbon Dioxide 25 (22-30) mmol/L Anion Gap 14.5 (5-15) MEQ/L BUN 13 (7-17) mg/dL Creatinine 0.67 (0.52-1.04) mg/dL Estimated GFR > 60.0 ML/MIN Glucose 92 (74-106) mg/dL Calcium 9.7 (8.4-10.2) mg/dL Magnesium 2.0 (1.6-2.3) mg/dL Total Bilirubin 0.40 (0.2-1.3) mg/dL AST 31 (14-36) U/L ALT 17 (0-35) U/L Alkaline Phosphatase 41 (38-126) U/L Troponin I (0.000-0.034) ng/mL NT-Pro-B Natriuret Pep 43.7 (0-450) pg/mL Serum Total Protein 7.9 (6.3-8.2) g/dL Albumin 4.7 (3.5-5.0) g/dL Urine HCG, Qual (Negative) - Progress Progress: improved Air Movement: good Progress Note: 11/25/20 17:37 40 years old is evaluated for chest pain shortness of breath. She is given aspirin, does not want any pain medication. Pain is resolved on its own. EKG showed normal sinus rhythm without any ST elevations or depressions. Negative troponins x2. Negative D-dimers. Chest x-ray negative for any acute cardiopulmonary findings. Work-up grossly unremarkable otherwise. On reevaluation she is chest pain-free. With her symptoms going on for the last few days and 2 - troponin I think it rules out ACS, do not think needs she needs to be admitted. She does have follow-up appointment next with Dr. Lemos machine ii cutter which she is advised to keep. She is advised to return promptly if has worsening of chest pain palpitations or shortness of breath etc. Blood Culture(s) Obtained: No Antibiotics given: No Counseled pt/family regarding: lab results, diagnosis, need for follow-up, rad results - Departure Departure Disposition: Home Clinical Impression: Atypical chest pain Condition: Stable Critical Care Time: No Referrals: SUKH LAWRENCE [Primary Care Provider] - (1-2 days for reevaluation) NOAH LEMOS MD [NON-STAFF PHY W/O PRIVILEGES] - (As scheduled) Instructions: Angina (DC), Chest Pain (DC) Additional Instructions: Take Tylenol/ibuprofen as needed. Follow-up with your primary care physician and machine ii cutter for reevaluation. Return to ER for worsening chest pain palpitations or if have dyspnea/shortness of breath.
[2020-11-25 14:53] LABS: Absolute Neutrophil Ct (ANC) 3.63 (1.4-6.9); BASOPHIL % 0.5 % (0.0-0.4); Basophil (Absolute #) 0.03 (0-0.4); Eosinophil % 2.8 % (0.00-5.0); Eosinophil (Absolute #) 0.17 (0-0.5); Hematocrit 39.6 % (35-47); Hemoglobin 12.7 gm/dl (12.0-16.0); Lymphocyte (Absolute #) 1.91 (1.0-4.6); Lymphocytes % 31.6 % (24.0-44.0); Mean Cell Volume 88.4 fl (78-100); Mean Corpuscular Hemoglobin 28.3 pg (26-32); Mean Corpuscular Hgb Concent. 32.1 g/dl (32-36); Mean Platelet Volume 10.3 fl (7.5-11.0); Monocyte (Absolute #) 0.31 (0.0-1.3); Monocytes % 5.1 % (0.0-12.0); Platelet Count 251 K/mm3 (150-450); Red Blood Count 4.48 M/mm3 (4.1-5.4); Red Cell Distribution Width 13.3 % (11.5-14.0); White Blood Count 6.1 K/mm3 (4.0-10.5)
[2020-11-25 15:14] LABS: ALBUMIN 4.7 g/dL (3.5-5.0); ALKALINE PHOSPHATASE 41 U/L (38-126); ANION GAP 14.5 MEQ/L (5-15); BLOOD UREA NITROGEN 13 mg/dL (7-17); CHLORIDE 103 mmol/L (98-107); Calcium 9.7 mg/dL (8.4-10.2); Carbon Dioxide 25 mmol/L (22-30); Creatinine 1 0.67 mg/dL (0.52-1.04); EST GLOMERULAR FILTRATION RATE > 60.0 ML/MIN; Glucose 92 mg/dL (74-106); NT PRO BNP 43.7 pg/mL (0-450); Potassium 3.9 mmol/L (3.5-5.1); SGOT/AST 31 U/L (14-36); SGPT/ALT 17 U/L (0-35); SODIUM 139 mmol/L (137-145); Total Protein 7.9 g/dL (6.3-8.2)
--- NOTE | 2020-11-25 16:23 | XRAY ---
Indication: Chest and back pain. Comparison: November 07, 2020. Portable chest continues to demonstrate normal heart, lungs, and bony thorax.
[2020-11-25 17:46] VITALS: PULSE 66
[2020-11-25 19:05] VITALS: BP 106/70; O2SAT 99
== END 2020-11-25 19:07 | disposition home or self-care (01) ==
LOC: ED 13:59
DX: R07.89 Other chest pain (principal); I27.20 Pulmonary hypertension, unspecified; E03.9 Hypothyroidism, unspecified; R05 Cough
CPT/HCPCS: 36000; 36415; 71045; 80053; 83735; 83880; 84484; 84703; 85025; 85379; 99284

== ENCOUNTER 2021-08-24 22:56 | Observation (INO) | payer OTHER ==
[2021-08-24 23:52] LABS: Epithelial Cells FEW /HPF (FEW); Mucus SLIGHT /HPF (NEGATIVE); RBC 0-2 /HPF (0-2); WBC 0-2 /HPF (0-5)
[2021-08-24 23:53] LABS: Appearance CLEAR (CLEAR); Bilirubin NEGATIVE (NEGATIVE); Dipstick done @ ? MAIN LAB; Glucose NEGATIVE (NEGATIVE); Ketones NEGATIVE (NEGATIVE); Nitrite NEGATIVE (NEGATIVE); Ph 7.5 (5-6); Protein,Urine Dip TRACE (Negative); RBC LARGE Ery/ul (0-5); Urobilinogen 0.2 mg/dL (0-1)
[2021-08-24 23:54] LABS: Urine Cultured Indicated? YES
[2021-08-25] LABS: Amphetamine,Urine NEGATIVE (NEGATIVE); Barbiturate,Urine NEGATIVE (NEGATIVE); Benzodiazepine,Urine NEGATIVE (NEGATIVE); Cocaine,Urine NEGATIVE (NEGATIVE); Methadone,Urine NEGATIVE (NEGATIVE); Opiate,Urine NEGATIVE (NEGATIVE); PCP,Urine NEGATIVE (NEGATIVE); THC,Urine NEGATIVE (NEGATIVE)
[2021-08-25] MEDS ORDERED: Lactated Ringers 1,000 ML IV ONE (00:44)
[2021-08-25 01:52] LABS: Hematocrit 29.2 % (35-47); Hemoglobin 9.3 g/dL (12.0-16.0); Mean Cell Volume 86.4 fL (78-100); Mean Corpuscular Hemoglobin 27.5 pg (26-32); Mean Corpuscular Hgb Concent. 31.8 g/dL (32-36); Mean Platelet Volume 11.1 fL (7.5-11.0); Platelet Count 158 x10^3/uL (150-450); Red Blood Count 3.38 x10^6/uL (4.1-5.4); Red Cell Distribution Width 12.7 % (11.5-14.0); White Blood Count 7.7 x10^3/uL (4.0-10.5)
[2021-08-25] MEDS ORDERED: Lactated Ringers 1,000 ML IV SCH (06:00)
[2021-08-25 07:02] VITALS: BP 103/63; PULSE 68; O2SAT 98
== END 2021-08-25 09:30 | disposition home or self-care (01) ==
LOC: OB 22:56
PROVIDERS: ADMIT Obstetrics & Gynecology; ATTEND Obstetrics & Gynecology
DX: Z34.83 Encounter for supervision of other normal pregnancy, third trimester (principal); Z3A.38 38 weeks gestation of pregnancy
CPT/HCPCS: 36415; 80307; 81015; 85027; 87086; G0378

== ENCOUNTER 2021-08-28 03:49 | Inpatient (IN) | payer OTHER ==
[2021-08-28] MEDS ORDERED: Lactated Ringers 1,000 ML IV ONE ×2 (06:00→10:14)
[2021-08-28 06:07] LABS: Hematocrit 29.4 % (35-47); Hemoglobin 9.4 g/dL (12.0-16.0); Mean Cell Volume 85.5 fL (78-100); Mean Corpuscular Hemoglobin 27.3 pg (26-32); Mean Platelet Volume 10.8 fL (7.5-11.0); Platelet Count 139 x10^3/uL (150-450); Red Blood Count 3.44 x10^6/uL (4.1-5.4); Red Cell Distribution Width 12.7 % (11.5-14.0); White Blood Count 8.1 x10^3/uL (4.0-10.5)
[2021-08-28] MEDS ORDERED: SOD CITRATE-CITRIC ACID SOLN PO SCH (06:30)
[2021-08-28] MEDS ORDERED: CLINDAMYCIN-D5W 900 MG/50 ML*** 900 MG/50 ML BAG IV SCH (06:30)
[2021-08-28] MEDS ORDERED: Reglan 10 MG/2 ML IV SCH (06:30)
[2021-08-28] MEDS ORDERED: Pepcid 20 MG VIAL IV SCH (06:30)
[2021-08-28 06:44] LABS: ABO TYPING O; Antibody Screen NEGATIVE (NEGATIVE); RH TYPING POSITIVE
[2021-08-28] MEDS ORDERED: Lactated Ringers 1,000 ML IV SCH (07:00)
[2021-08-28] MEDS ORDERED: Pitocin 10 UNITS/ML ONE (07:08)
[2021-08-28] MEDS ORDERED: Astramorph-Pf 5 MG/10 ML ONE (07:08)
[2021-08-28 07:17] LABS: PTT 24.2 SECONDS (25.1-36.5)
[2021-08-28] MEDS ORDERED: PHENYLEPHRINE HCL ONE (08:01)
[2021-08-28] MEDS ORDERED: Marcaine 0.5%/Epinephrine 10 ML ONE (08:12)
[2021-08-28] MEDS ORDERED: Zofran 4 MG/2 ML VIAL ONE (08:53)
[2021-08-28] MEDS ORDERED: Compazine 10 MG/2 ML ONE (09:10)
[2021-08-28 09:52] LABS: Appearance CLEAR (CLEAR); Glucose NEGATIVE (NEGATIVE); Ketones NEGATIVE (NEGATIVE); Leukocyte Esterase NEGATIVE (NEGATIVE); Mucus SLIGHT /HPF (NEGATIVE); Nitrite NEGATIVE (NEGATIVE); Protein,Urine Dip NEGATIVE (Negative)
[2021-08-28] MEDS ORDERED: BENADRYL 50 MG/ML IV PRN (09:52)
[2021-08-28] MEDS ORDERED: HOLD NARCOTIC ANALGESICS AND SEDATIVES X24 HR MC PRN (09:52)
[2021-08-28] MEDS ORDERED: Mylicon 80MG PO PRN (09:52)
[2021-08-28] MEDS ORDERED: LANSINOH 40 GM TOP PRN (09:52)
[2021-08-28] MEDS ORDERED: PERCOCET TABLET 5/325MG PO PRN (09:52)
[2021-08-28] MEDS ORDERED: Narcan 0.4 MG/ML IV PRN (09:52)
[2021-08-28] MEDS ORDERED: DEMEROL 50 MG IV PRN (09:52)
[2021-08-28] MEDS ORDERED: Nubain 10 MG/ML IV PRN (09:52)
[2021-08-28] MEDS ORDERED: CLARITIN 10 MG PO PRN (09:52)
[2021-08-28] MEDS ORDERED: MORPHINE SULFATE 2 MG INJ IV PRN (09:52)
[2021-08-28] MEDS ORDERED: Dulcolax 10 MG SUPP PR PRN (09:52)
[2021-08-28] MEDS ORDERED: Sodium Chloride 0.9% 10 ML FLUSH Syringe IJ PRN (09:52)
[2021-08-28] MEDS ORDERED: TYLENOL EXTRA STRENGTH 500 MG PO PRN (09:52)
[2021-08-28 09:53] LABS: Bilirubin NEGATIVE (NEGATIVE); Blood NEGATIVE Ery/ul (0-5); Urobilinogen 0.2 mg/dL (0-1)
[2021-08-28] MEDS ORDERED: PITOCIN 30 UNITS/ LR 500 ML 500 ML IV ONE (10:18)
[2021-08-28 10:23] LABS: Absolute Neutrophil Ct (ANC) 6.03 x10^3/uL (1.4-6.9); Basophil (Absolute #) 0.04 x10^3/uL (0-0.4); Eosinophil % 1.7 % (0.00-5.0); Eosinophil (Absolute #) 0.13 x10^3/uL (0-0.5); Hemoglobin 8.9 g/dL (12.0-16.0); Lymphocyte (Absolute #) 1.13 x10^3/uL (1.0-4.6); Lymphocytes % 14.5 % (24.0-44.0); Mean Cell Volume 86.7 fL (78-100); Mean Corpuscular Hemoglobin 27.6 pg (26-32); Mean Corpuscular Hgb Concent. 31.8 g/dL (32-36); Mean Platelet Volume 10.2 fL (7.5-11.0); Monocyte (Absolute #) 0.42 x10^3/uL (0.0-1.3); Monocytes % 5.4 % (0.0-12.0); Neutrophil % 77.1 % (36.0-66.0); Platelet Count 137 x10^3/uL (150-450); Red Blood Count 3.23 x10^6/uL (4.1-5.4); Red Cell Distribution Width 12.6 % (11.5-14.0); White Blood Count 7.8 x10^3/uL (4.0-10.5)
[2021-08-28] MEDS ORDERED: PITOCIN 30 UNITS/ LR 500 ML 30 UNITS/500 ML PLAST..BAG IV SCH (10:30)
[2021-08-28 10:35] LABS: ALBUMIN 2.7 g/dL (3.5-5.0); ALKALINE PHOSPHATASE 120 U/L (38-126); ANION GAP 9.2 MEQ/L (5-15); BLOOD UREA NITROGEN 10 mg/dL (7-17); CHLORIDE 106 mmol/L (98-107); Calcium 8.2 mg/dL (8.4-10.2); Carbon Dioxide 22 mmol/L (22-30); Creatinine 1 0.57 mg/dL (0.52-1.04); EST GLOMERULAR FILTRATION RATE > 60.0 ML/MIN; Glucose 109 mg/dL (74-106); Potassium 3.5 mmol/L (3.5-5.1); SGOT/AST 27 U/L (14-36); SGPT/ALT 16 U/L (0-35); SODIUM 134 mmol/L (137-145); Total Protein 5.5 g/dL (6.3-8.2)
[2021-08-28 10:43] LABS: INR 0.97 (0.8-3.0); PROTIME 10.3 SECONDS (9.4-12.5)
[2021-08-28] MEDS: Docusate Sodium 100 MG PO SCH ×2 (11:20→21:51)
[2021-08-28] MEDS: Dextrose 5%-Lr IV Solution 1000 ML 1,000 ML IV SCH ×3 (11:20→23:23)
[2021-08-28] MEDS: FERREX 150 PO SCH (11:20)
[2021-08-28] MEDS: Zofran 4 MG/2 ML VIAL IV PRN ×2 (13:20→17:34)
[2021-08-29 05:07] LABS: Absolute Neutrophil Ct (ANC) 6.35 x10^3/uL (1.4-6.9); Basophil (Absolute #) 0.03 x10^3/uL (0-0.4); Eosinophil % 0.9 % (0.00-5.0); Eosinophil (Absolute #) 0.07 x10^3/uL (0-0.5); Hematocrit 26.9 % (35-47); Hemoglobin 8.5 g/dL (12.0-16.0); Lymphocyte (Absolute #) 0.89 x10^3/uL (1.0-4.6); Lymphocytes % 11.3 % (24.0-44.0); Mean Cell Volume 86.5 fL (78-100); Mean Corpuscular Hemoglobin 27.3 pg (26-32); Mean Corpuscular Hgb Concent. 31.6 g/dL (32-36); Mean Platelet Volume 11.1 fL (7.5-11.0); Monocytes % 6.4 % (0.0-12.0); Neutrophil % 80.6 % (36.0-66.0); Platelet Count 132 x10^3/uL (150-450); Red Blood Count 3.11 x10^6/uL (4.1-5.4); White Blood Count 7.9 x10^3/uL (4.0-10.5)
[2021-08-29] MEDS: MOTRIN 400 MG PO PRN ×3 (05:27→21:54)
--- NOTE | 2021-08-29 07:37 | PCM.NOTE ---
Date and Time: 08/29/21734 Subjective Assessment: POD 1 SP CSECTION PT RESTING IN BED AND DOING WELL VSS AFEBRILE ABD; SOFT INCISION C/D/INTACT UTERUS; FIRM LOCHIA; MILD A/P SP CSECTION POD 1 CPM ANTICIPATE DISCHARGE TOMRORROW OBJECTIVE DATA Vital Signs: Vital Signs - 24 hr Temp Pulse Resp BP Pulse Ox 08/29/21 06:47 81 20 100 08/29/21 06:00 100 08/29/21 05:00 100 08/29/21 04:00 98.3 F 67 18 104/61 99 08/29/21 03:00 98 08/29/21 02:00 95 08/29/21 01:00 98.5 F 69 20 97 08/29/21 00:00 98.5 F 67 18 101/62 97 08/28/21 23:00 99 08/28/21 22:00 95 08/28/21 21:00 98 08/28/21 20:00 98 08/28/21 19:00 97.9 F 70 20 109/64 97 08/28/21 18:00 98 08/28/21 17:00 98 08/28/21 16:00 64 16 103/68 100 08/28/21 14:53 97 08/28/21 13:53 100 08/28/21 13:15 64 18 113/67 100 08/28/21 12:53 99 08/28/21 12:15 60 18 95/57 100 08/28/21 12:00 60 18 95/57 100 08/28/21 11:53 100 08/28/21 11:15 66 16 96 08/28/21 10:45 63 16 97/55 95 08/28/21 10:00 96 08/28/21 09:30 18 93 L 08/28/21 09:00 93 L Pain Assessment - Last Documented Pain Intensity 1 Intake and Output: Intake & Output 08/26/21 08/27/21 08/28/21 08/29/21 11:59 11:59 11:59 11:59 Intake Total 6536 Output Total 3150 Balance 3386 Weight 71.214 kg Lab Results: Lab Results-Last 24 Hours 08/28/21 08/28/21 08/28/21 Range/Units 05:55 07:55 10:22 WBC 7.8 (4.0-10.5) x10^3/uL RBC 3.23 L (4.1-5.4) x10^6/uL Hgb 8.9 L (12.0-16.0) g/dL Hct 28.0 L (35-47) % MCV 86.7 (78-100) fL MCH 27.6 (26-32) pg MCHC 31.8 L (32-36) g/dL RDW 12.6 (11.5-14.0) % Plt Count 137 L (150-450) x10^3/uL MPV 10.2 (7.5-11.0) fL Gran % 77.1 H (36.0-66.0) % Immature Gran % (Auto) 0.8 H (0.00-0.4) % Nucleat RBC Rel Count 0.0 (0.00-0.1) % Eos # (Auto) 0.13 (0-0.5) x10^3/uL Immature Gran # (Auto) 0.06 H (0.00-0.03) x10^3u/L Absolute Lymphs (auto) 1.13 (1.0-4.6) x10^3/uL Absolute Monos (auto) 0.42 (0.0-1.3) x10^3/uL Absolute Nucleated RBC 0.00 (0.00-0.01) x10^3u/L Lymphocytes % 14.5 L (24.0-44.0) % Monocytes % 5.4 (0.0-12.0) % Eosinophils % 1.7 (0.00-5.0) % Basophils % 0.5 (0.0-0.4) % Absolute Granulocytes 6.03 (1.4-6.9) x10^3/uL Basophils # 0.04 (0-0.4) x10^3/uL PT 10.3 (9.4-12.5) SECONDS INR 0.97 (0.8-3.0) APTT 24.2 L (25.1-36.5) SECONDS Sodium (137-145) mmol/L Potassium (3.5-5.1) mmol/L Chloride (98-107) mmol/L Carbon Dioxide (22-30) mmol/L Anion Gap (5-15) MEQ/L BUN (7-17) mg/dL Creatinine (0.52-1.04) mg/dL Estimated GFR ML/MIN Glucose (74-106) mg/dL Calcium (8.4-10.2) mg/dL Total Bilirubin (0.2-1.3) mg/dL AST (14-36) U/L ALT (0-35) U/L Alkaline Phosphatase (38-126) U/L Serum Total Protein (6.3-8.2) g/dL Albumin (3.5-5.0) g/dL Urine Color YELLOW (YELLOW) Urine Appearance CLEAR (CLEAR) Urine pH 7.0 (5-6) Ur Specific Hobbs 1.020 (1.005-1.025) Urine Protein NEGATIVE (Negative) Urine Ketones NEGATIVE (NEGATIVE) Urine Blood NEGATIVE (0-5) Jabier/ul Urine Nitrite NEGATIVE (NEGATIVE) Urine Bilirubin NEGATIVE (NEGATIVE) Urine Urobilinogen 0.2 (0-1) mg/dL Ur Leukocyte Esterase NEGATIVE (NEGATIVE) Urine WBC (Auto) NONE (0-5) /HPF Urine RBC (Auto) NONE (0-2) /HPF U Epithel Cells (Auto) NONE (FEW) /HPF Urine Bacteria (Auto) NONE (NEGATIVE) /HPF Urine Mucus (Auto) SLIGHT (NEGATIVE) /HPF Urine Glucose NEGATIVE (NEGATIVE) mg/dL 08/28/21 08/29/21 Range/Units 10:22 04:30 WBC 7.9 (4.0-10.5) x10^3/uL RBC 3.11 L (4.1-5.4) x10^6/uL Hgb 8.5 L (12.0-16.0) g/dL Hct 26.9 L (35-47) % MCV 86.5 (78-100) fL MCH 27.3 (26-32) pg MCHC 31.6 L (32-36) g/dL RDW 13.0 (11.5-14.0) % Plt Count 132 L (150-450) x10^3/uL MPV 11.1 H (7.5-11.0) fL Gran % 80.6 H (36.0-66.0) % Immature Gran % (Auto) 0.4 (0.00-0.4) % Nucleat RBC Rel Count 0.0 (0.00-0.1) % Eos # (Auto) 0.07 (0-0.5) x10^3/uL Immature Gran # (Auto) 0.03 (0.00-0.03) x10^3u/L Absolute Lymphs (auto) 0.89 L (1.0-4.6) x10^3/uL Absolute Monos (auto) 0.50 (0.0-1.3) x10^3/uL Absolute Nucleated RBC 0.00 (0.00-0.01) x10^3u/L Lymphocytes % 11.3 L (24.0-44.0) % Monocytes % 6.4 (0.0-12.0) % Eosinophils % 0.9 (0.00-5.0) % Basophils % 0.4 (0.0-0.4) % Absolute Granulocytes 6.35 (1.4-6.9) x10^3/uL Basophils # 0.03 (0-0.4) x10^3/uL PT (9.4-12.5) SECONDS INR (0.8-3.0) APTT (25.1-36.5) SECONDS Sodium 134 L (137-145) mmol/L Potassium 3.5 (3.5-5.1) mmol/L Chloride 106 (98-107) mmol/L Carbon Dioxide 22 (22-30) mmol/L Anion Gap 9.2 (5-15) MEQ/L BUN 10 (7-17) mg/dL Creatinine 0.57 (0.52-1.04) mg/dL Estimated GFR > 60.0 ML/MIN Glucose 109 H (74-106) mg/dL Calcium 8.2 L (8.4-10.2) mg/dL Total Bilirubin 0.20 (0.2-1.3) mg/dL AST 27 (14-36) U/L ALT 16 (0-35) U/L Alkaline Phosphatase 120 (38-126) U/L Serum Total Protein 5.5 L (6.3-8.2) g/dL Albumin 2.7 L (3.5-5.0) g/dL Urine Color (YELLOW) Urine Appearance (CLEAR) Urine pH (5-6) Ur Specific Hobbs (1.005-1.025) Urine Protein (Negative) Urine Ketones (NEGATIVE) Urine Blood (0-5) Jabier/ul Urine Nitrite (NEGATIVE) Urine Bilirubin (NEGATIVE) Urine Urobilinogen (0-1) mg/dL Ur Leukocyte Esterase (NEGATIVE) Urine WBC (Auto) (0-5) /HPF Urine RBC (Auto) (0-2) /HPF U Epithel Cells (Auto) (FEW) /HPF Urine Bacteria (Auto) (NEGATIVE) /HPF Urine Mucus (Auto) (NEGATIVE) /HPF Urine Glucose (NEGATIVE) mg/dL Multi-Disciplinary Progress Notes: Multi-Disciplinary Progress Notes 08/28/21 09:38 Respiratory Note by Mouna Moreira Went to stand for c section baby born with no issues good color and tone and crying. checked pulse ox once in nursery sats were 90% and baby pink and crying no issues noted. [email or web address] Initialized on 08/28/21 09:38 - END OF NOTE Assessment/Plan (1) Status post repeat low transverse section Current Visit: Yes Status: Acute Code(s): Z98.891 - HISTORY OF UTERINE SCAR FROM PREVIOUS SURGERY
--- NOTE | 2021-08-29 08:43 | OP ---
SURGERY DATE/TIME: 08/28/2021 0735 PREOPERATIVE DIAGNOSIS: Intrauterine at 39 weeks gestation with previous section x2 for repeat section. POSTOPERATIVE DIAGNOSIS: Intrauterine at 39 weeks gestation with previous section x2 for repeat section. PROCEDURE: Repeat section, low flap transverse uterine incision, Pfannenstiel skin incision. SURGEON: Jim Christianson D.O. MECHANICAL SERVICE SPECIALIST: Nakul Crowe, surgical manager. ANESTHESIA: Spinal. ESTIMATED BLOOD LOSS: 400 cc. COMPLICATIONS: None. INDICATIONS: The risks, benefits, indications and alternatives of the procedure were reviewed with the patient prior to procedure. The patient understood the risk of infection, bleeding, bowel injury, bladder injury, ureteral injury, uterine perforation, pelvic infection, thromboembolic disorder associated with the surgery and desires to have this surgery as a possible means to alleviate her current medical condition. DESCRIPTION OF PROCEDURE AND FINDINGS: At this point the patient is taken to the operating room where her spinal anesthesia was found to be adequate. She was then prepared and draped in normal sterile fashion in the dorsal supine position with leftward tilt. A Pfannenstiel skin incision is made with a scalpel and carried through to the underlying layer of the fascia with a Bovie. The fascia was then incised in the midline and the incision extended laterally with Alcala scissors. The superior aspect of the fascial incision was then grasped Castro clamps elevated and the underlying rectus muscles dissected off bluntly. Attention is then turned to the inferior aspect of this incision which in similar fashion was grasped, tented up with Castro clamps and the rectus muscles dissected off bluntly. The rectus muscles were then in the midline and the peritoneum identified, tented up and entered sharply with Metzenbaum scissors. The peritoneal incision was then extended superiorly and inferiorly with good visualization of the bladder. The bladder blade was then inserted. However, there was significant scar between the anterior uterine wall and the uterus for which two Genevieve clamps were used to separate the scarring between the anterior uterine wall and the uterus which was cut in between and the uterus from the anterior abdominal wall. From this point moving forward, the bladder blade was inserted and the vesicouterine peritoneum identified grasped with pickups and entered sharply with Metzenbaum scissors. This incision was then extended laterally and bladder flap created digitally. The bladder blade was then re-inserted in the lower uterine segment and incised in transverse fashion with a scalpel. The uterine incision was then extended laterally with bandage scissors. The bladder blade was then removed and the infants head was delivered atraumatically. The nose and mouth were suctioned with bulb suction and the cord clamped and cut. The infant was then handed off to the awaiting nurses. The placenta was then removed manually. The uterus exteriorized and cleared of all clots and debris. The uterine incision was repaired with 1-0 chromic in a running locked fashion. A second layer of the same suture was used to obtain excellent hemostasis. At this point the uterus is then returned to the abdomen. The gutters were cleared of all clots and the peritoneum closed in interrupted fashion using 2-0 chromic sutures. The fascia was re-approximated with 0 Vicryl in running fashion. The skin was closed with absorbable rafael called INSORB. The patient tolerated the procedure well. Sponge, lap, needle and instrument counts were correct x2. The patient was then taken to the recovery room in stable condition. The patient delivered a live baby girl at 0806 hours. The weight of the baby was 5 pounds 15 ounces.
[2021-08-29] MEDS: Docusate Sodium 100 MG PO SCH ×2 (09:11→21:54)
[2021-08-29] MEDS: FERREX 150 PO SCH (09:11)
[2021-08-29] MEDS: NORCO 5/325 MG PO PRN (19:58)
[2021-08-29 20:13] VITALS: O2SAT 100
[2021-08-30] MEDS: NORCO 5/325 MG PO PRN ×2 (00:05→08:29)
[2021-08-30] MEDS: MOTRIN 400 MG PO PRN (04:48)
--- NOTE | 2021-08-30 07:55 | PCM.NOTE ---
Date and Time: 08/30/21 0753 Subjective Assessment: POD 2 PT RESTING IN BED AND DOING WELL WITHOUT COMPLAINTS. PT AMBULATING AND TOLERATING DIET. VSS AFEBRILE ABD; SOFT INCISION C/D/INTACT UTERUS; FIRM LOCHIA; MILD A/P SP CSECTION POD 2 CHRONIC ANEMIA DC HOME TODAY FU OFFICE 2 WKS OBJECTIVE DATA Vital Signs: Vital Signs - 24 hr Temp Pulse Resp BP Pulse Ox 08/30/21 00:00 98.5 F 73 18 111/76 100 08/29/21 20:00 97.5 F 85 18 130/76 100 08/29/21 17:00 97.9 F 90 18 119/69 95 08/29/21 08:00 98.2 F 77 18 113/77 100 Pain Assessment - Last Documented Pain Intensity [Bilateral 5 Lower Anterior/Posterior] Pain Intensity 6 Pain Scale Used 0-10 Pain Scale Intake and Output: Intake & Output 08/27/21 08/28/21 08/29/21 08/30/21 11:59 11:59 11:59 11:59 Intake Total 6536 2900 Output Total 3150 Balance 3386 2900 Weight 71.214 kg Assessment/Plan (1) Status post repeat low transverse section Current Visit: Yes Status: Acute Code(s): Z98.891 - HISTORY OF UTERINE SCAR FROM PREVIOUS SURGERY (2) Chronic anemia Current Visit: Yes Status: Acute Code(s): D64.9 - ANEMIA, UNSPECIFIED
--- NOTE | 2021-08-30 08:03 | PCM.DS ---
Discharge Summary Date of Admission: 08/28/21 05:26 Admitting Physician: AUGUSTINE GUTIERREZ DO Consults: Consults on Case 08/28/21 05:39 Notify Anesthesia Provider ROUTINE 08/28/21 06:41 Notify Anesthesia Provider ROUTINE 08/28/21 09:52 Notify Anesthesia Provider PRN Notify Physician ROUTINE Primary Care Provider: SUKH LAWRENCE Allergies Allergies Penicillins Allergy (Unknown, Verified 12/20/19 10:36) Hospital Summary - Hospital Course Hospital Course: PT ADMITTED ON SEPTEMBER 27 FOR SCHEDULED REPEAT CSECTION AT 39 WKS GESTATION AND UNDERWENT PROCEDURE WITHOUT COMPLICATION. PT WAS NOTED HAVING SIGNIFICANT ABDOMINAL SCARRING UPON ENTRY OF PERITONEUM HOWEVER LYSIS OF ADHESION WAS TAKEN PLACE AND DELIVERED LIVE BABY GIRL WITHOUT COMPLICATION. DURING POSTOP PERIOD DID WELL WAS NOTED HAVING HGB 8.5 WHICH WAS STABLE FROM PREOP LEVEL. PT WAS ABLE TO AMBULATE AND TOLERATE DIET AND INCISION APPEARED WITH NORMAL HEALING. PT AT THIS TIME STABLE FOR DISCHARGE AND ADVISED TO FU IN 2 WKS FOR POSTOP EVALUATION. PT WAS SENT RX OF HEMINGWAY FOR PAIN MANAGEMENT AND WAS ADVISED TO CALL ME FOR ANY ISSUES THAT MAY ARISE. ALL QUESTIONS ANSWERED TO HER SATISFACTION. - Vitals & Intake/Output Vital Signs: Vital Signs Temperature 98.5 F 08/30/21 00:00 Pulse Rate 73 08/30/21 00:00 Respiratory Rate 18 08/30/21 00:00 Blood Pressure 111/76 08/30/21 00:00 O2 Sat by Pulse Oximetry 100 08/30/21 00:00 Intake & Output: Intake & Output 08/27/21 08/28/21 08/29/21 08/30/21 11:59 11:59 11:59 11:59 Intake Total 6536 2900 Output Total 3150 Balance 3386 2900 Weight 71.214 kg - Lab Result Diagrams: 08/29/21 04:30 08/28/21 10:22 Micro Results-Entire Visit: Microbiology 08/28/21 07:55 Urine Culture - Preliminary Urine, Catheterized NO GROWTH TO DATE - Procedures and Test Procedures and Tests throughout Hospitalization: Therapy Orders & Screens 08/28/21 09:38 Standby ROUTINE Comment: Diagnosis: REPEAT C/S Final Diagnosis/Problem List - Final Discharge Diagnosis/Problem (1) Status post repeat low transverse section Current Visit: Yes Status: Acute Code(s): Z98.891 - HISTORY OF UTERINE SCAR FROM PREVIOUS SURGERY (2) Chronic anemia Current Visit: Yes Status: Acute Code(s): D64.9 - ANEMIA, UNSPECIFIED - Discharge Disposition: Home, Self-Care Condition: Stable Prescriptions: New Hydrocodone/Acetaminophen [Hydrocodone-Acetamin 5-325 mg] 1 tab PO Q6HPRN PRN #30 tablet MDD 4 PRN Reason: Pain Iron Polysaccharides Complex [Ferrex 150] 150 mg PO DAILY #60 MDD 2 No Action Multivitamin [Multi-Vitamin Daily] 1 each PO DAILY Follow up with: SUKH LAWRENCE [Primary Care Provider] - AUGUSTINE GUTIERREZ DO [ACTIVE STAFF] - 2 weeks (keep incision clean and dry no heavy lifting no driving for 10 days)
[2021-08-30 08:38] VITALS: BP 112/79; PULSE 78
[2021-08-30 16:25] LABS: HBsAg Screen Negative (Negative)
== END 2021-08-30 10:45 | disposition home or self-care (01) | DRG 788 ==
LOC: OB 05:26 → EDSTATUS 14:07
PROVIDERS: ADMIT Obstetrics & Gynecology; ATTEND Obstetrics & Gynecology
PROC: 10D00Z1 Extraction of Products of Conception, Low, Open Approach (ICD-10-PCS; principal; 2021-08-28)
DX: O34.211 Maternal care for low transverse scar from previous cesarean delivery (principal); Z3A.39 39 weeks gestation of pregnancy; Z37.0 Single live birth; D64.9 Anemia, unspecified; Z20.828 Contact with and (suspected) exposure to other viral communicable diseases
CPT/HCPCS: 36415; 59510; 62322; 64488; 76937; 76942; 80053; 81001; 85025; 85027; 85610; 85730; 86850; 86900; 86901; 87086; 87340; 94799; J2274; J2370; J2405; J2590; L0625; A9270-GY

== ENCOUNTER 2023-06-22 10:00 | Emergency (ER) | payer OTHER ==
[2023-06-22 10:12] VITALS: BP 124/70; TEMP 97.6; O2SAT 100
--- NOTE | 2023-06-22 10:26 | ERPHSYRPT ---
- History of Present Illness Time Seen by Provider: 06/22/23 10:20 Exam Limitations: no limitations Patient Subjective Stated Complaint: Pt was using stretch bands and exercising when she suddenly injured her left shoulder, hx of shoulder injury Triage Nursing Assessment: [facility] in [facility], vitals wnl, rates pain as 10/10, left shoulder deformity, pulses normal, skin n/c/d, appears to be in moderate pain Physician History: 43-year-old female presents to emergency department for evaluation of suspected left shoulder dislocation. Patient states she has dislocated her left shoulder in the past. She advises that her doctors advised surgery however due to other obligations patient has been unable to obtain her surgery. Patient was exercising at the local fitness center. Patient reports she is using a Thera- Band when she felt her shoulder dislocate. Injury occurred just prior to arrival. However shortly upon arrival patient felt her shoulder auto reduce. Patient is no longer in pain. She declined pain medication. No other injuries reported. States she is otherwise healthy. Friend at bedside. Patient voices no other complaints or concerns at this time. Portions of this note were created with voice recognition technology. There may be grammatical, spelling, punctuation or sound alike errors Occurred: just prior to arrival Method of Injury: other (Exercising with a Thera-Band) Quality: constant Severity of Pain-Max: moderate Severity of Pain-Current: mild Extremities Pain Location: shoulder: left Modifying Factors: Improves With: movement Associated Symptoms: none Allergies/Adverse Reactions: Penicillins Allergy (Unknown, Verified 06/22/23 10:12) Home Medications: Multivitamin [Multi-Vitamin Daily] 1 each PO DAILY 08/28/21 [History] Hx Tetanus, Diphtheria Vaccination/Date Given: No Hx Influenza Vaccination/Date Given: Yes (2015) Hx Pneumococcal Vaccination/Date Given: No Travel Risk - International Travel Have you traveled outside of the country in past 3 weeks: No - Emerging Infectious Disease Are you exhibiting symptoms associated with any current EIDs: No - Review of Systems Constitutional: No Symptoms, No Fever, No Chills Eyes: No Symptoms Ears, Nose, & Throat: No Symptoms Respiratory: No Symptoms, No Cough, No Dyspnea Cardiac: No Symptoms, No Chest Pain, No Edema, No Syncope Abdominal/Gastrointestinal: No Symptoms, No Abdominal Pain, No Nausea, No Vomiting, No Diarrhea Genitourinary Symptoms: No Symptoms, No Dysuria Musculoskeletal: No Symptoms, No Back Pain, No Neck Pain Skin: No Symptoms, No Rash Neurological: No Symptoms, No Dizziness, No Focal Weakness, No Sensory Changes Psychological: No Symptoms Endocrine: No Symptoms Hematologic/Lymphatic: No Symptoms Immunological/Allergic: No Symptoms All Other Systems: Reviewed and Negative - Past Medical History Pertinent Past Medical History: Yes Neurological History: No Pertinent History ENT History: No Pertinent History Cardiac History: No Pertinent History Respiratory History: No Pertinent History Endocrine Medical History: Hypothyroidism Musculoskeletal History: Fractures, Other GI Medical History: No Pertinent History History: No Pertinent History Psycho-Social History: No Pertinent History Female Reproductive Disorders: No Pertinent History - Past Surgical History Past Surgical History: Yes Neuro Surgical History: No Pertinent History Cardiac: No Pertinent History Respiratory: No Pertinent History Gastrointestinal: Other Genitourinary: No Pertinent History Musculoskeletal: Other Female Surgical History: Section Other Surgical History: EGD, Colonoscopy, knee sope - Female History Hx Last Menstrual Period: beginning of May Hx Now: No - Social History Smoking Status: Never smoker Exposure to second hand smoke: No Drug Use: none Patient Lives Alone: No - Nursing Vital Signs Nursing Vital Signs: Initial Vital Signs Temperature 97.6 F 06/22/23 10:02 Pulse Rate 80 06/22/23 10:02 Blood Pressure 124/70 06/22/23 10:02 O2 Sat by Pulse Oximetry 100 06/22/23 10:02 Pain Scale Pain Intensity 10 - Physical Exam General Appearance: no apparent distress, alert Eyes, Ears, Nose, Throat Exam: moist mucous membranes Neck Exam: normal inspection, non-tender, supple, full range of motion Cardiovascular/Respiratory Exam: chest non-tender, normal breath sounds, regular rate/rhythm, no respiratory distress Abdominal Exam: non-tender, soft, No guarding Back Exam: normal inspection, No vertebral tenderness Shoulder Exam: limited ROM (Left shoulder is resting in a shoulder sling which was reportedly applied at the fitness center) Elbow/Forearm Exam: normal inspection, non-tender, no evidence of injury, normal ROM Wrist Exam: normal inspection, non-tender, no evidence of injury, normal ROM Hand Exam: normal inspection, non-tender, no evidence of injury, normal ROM Neuro/Tendon Exam: normal sensation, normal motor functions, normal tendon functions Mental Status Exam: alert, oriented x 3, cooperative Skin Exam: normal color, warm, dry SpO2 Interpretation: normal SpO2: 100 O2 Delivery: Room Air - Course Nursing assessment & vital signs reviewed: Yes - Radiology Exams Shoulder X-ray Interpretation: Interpreted by me (Left shoulder x-ray shows no dislocation. Shoulder is resting in its anatomical position with good glenohumeral joint alignment) Ordered Tests: Active Orders 24 hr Category Date Time Status SHOULDER Stat Exams 06/22/23 10:01 Completed - Progress Progress: improved Progress Note: Patient is a 43-year-old female presents to our ED for evaluation of left shoulder pain. Patient was exercising at the local fitness center and feels that she dislocated her left shoulder. Patient has a history of recurrent left shoulder dislocation. Upon arrival the shoulder auto reduced. Patient neurovascular tact distally on exam. X-ray confirms normal GH alignment. No dislocation. Patient's shoulder resting in the left upper extremity shoulder sling. Involved extremities neurovascular intact distally compartments are soft cap refill less than 2 seconds. Patient declined pain medication. No indication for further workup will discharge at this time. Patient agrees to follow-up with her primary care doctor within 48 hours for reevaluation. Portions of this note were created with voice recognition technology. There may be grammatical, spelling, punctuation or sound alike errors Complexity of problems addressed is moderate acute complicated No critical care time Complexity of data reviewed and analyzed is moderate. Dr. Morejon independently reviewed the x-ray of the left shoulder. Risk of complication and/or risk of morbidity/mortality patient management is low Vital stable. Time spent to discharge patient is approximately 20 minutes. Plan of care established for shared decision making. No social determinants felt present to impede follow-up. Portions of this note were created with voice recognition technology. There may be grammatical, spelling, punctuation or sound alike errors 06/22/23 10:50 Counseled pt/family regarding: diagnosis, need for follow-up, rad results - Departure Departure Disposition: Home Clinical Impression: Left shoulder pain, Shoulder dislocation, recurrent Condition: Stable Critical Care Time: No Referrals: SUKH LAWRENCE [ACTIVE STAFF] - Follow up/PCP as directed Additional Instructions: Discharge/Care Plan OFE MERCEDES was seen on 06/22/23 in the Emergency Room. The patient was counseled regarding Diagnosis,Lab results, Imaging studies, need for follow up and when to return to the Emergency Room. Prescriptions given: Discharge Note I have spoken with the patient and/or caregivers. I have explained the patient's condition, diagnosis and treatment plan based on the information available to me at this time. I have answered the patient's and/or caregiver's questions and addressed any concerns. The patient and/or caregivers have as good understanding of the patient's diagnosis, condition and treatment plan as can be expected at this point. The vital signs have been stable. The patient's condition is stable and appropriate for discharge from the emergency department. The patient will pursue further outpatient evaluation with the primary care physician or other designated or consulting physician as outlined in the discharge instructions. The patient and/or caregivers are agreeable to this plan of care and follow-up instructions have been explained in detail. The patient and/or caregivers have received these instruction. The patient/and or caregivers are aware that any significant change in condition or worsening of symptoms should prompt an immediate return to this or the closest emergency department or call 911.
--- NOTE | 2023-06-22 10:58 | XRAY ---
Indication: Pain following injury. Status post dislocation with spontaneous reduction. Comparison: February 20, 2014 3 view left shoulder obtained. No bony, articular, or soft tissue abnormalities.
[2023-06-22 11:06] VITALS: PULSE 72
== END 2023-06-22 11:08 | disposition home or self-care (01) ==
LOC: ED 10:00
DX: S43.005A Unspecified dislocation of left shoulder joint, initial encounter (principal); M25.512 Pain in left shoulder
CPT/HCPCS: 73030; 99282